=== PATIENT | female | born 1950 | race Caucasian/White ===

== ENCOUNTER → 2020-12-26 | Outpatient (CLI) | payer MEDICARE, OTHER ==
[~2020-12-26] MED LIST: BENADRYL25 MG PO; FLEXERIL 10 MG10 MG PO; MEDROL4 MG PO
== END ==
LOC: KOH-I 12:56
DX: Z01.811 Encounter for preprocedural respiratory examination (principal); R06.02 Shortness of breath
CPT/HCPCS: 71046

== ENCOUNTER 2021-01-08 10:34 | Emergency (ER) | payer MEDICARE, OTHER ==
[~2021-01-08 10:34] MED LIST changes: -BENADRYL25 MG PO; -MEDROL4 MG PO
[2021-01-08 13:23] LABS: HEMOGLOBIN 12.7 gm/dl (12.3-15.3); RED BLOOD COUNT 4.36 M/UL (4.00-5.10); WHITE BLOOD COUNT 10.1 K/UL (4.5-11.0)
[2021-01-08] MEDS ORDERED: MEDROL4 MG PO (14:06)
[2021-01-08] MEDS ORDERED: BENADRYL25 MG PO (14:06)
== END 2021-01-08 14:58 | disposition home or self-care (01) ==
LOC: ER1 10:34
PROVIDERS: Emergency Medicine
DX: T78.40XA Allergy, unspecified, initial encounter (principal); R21 Rash and other nonspecific skin eruption; H57.89 Other specified disorders of eye and adnexa; I10 Essential (primary) hypertension; E11.51 Type 2 diabetes mellitus with diabetic peripheral angiopathy without gangrene; M19.90 Unspecified osteoarthritis, unspecified site; F17.200 Nicotine dependence, unspecified, uncomplicated; Z79.899 Other long term (current) drug therapy
CPT/HCPCS: 80053; 85025; 87040; 96374; 96375; 99283; J1200; J2930; J7030

== ENCOUNTER 2021-01-21 20:18 | Emergency (ER) | payer MEDICARE, OTHER ==
[~2021-01-21 20:18] MED LIST changes: +BENADRYL25 MG PO; +MEDROL4 MG PO
[2021-01-21 21:40] LABS: HEMOGLOBIN 13.3 gm/dl (12.3-15.3); RED BLOOD COUNT 4.37 M/UL (4.00-5.10); WHITE BLOOD COUNT 12.8 K/UL (4.5-11.0)
[2021-01-21 22:03] LABS: BUN/CREATININE RATIO 23 (0-10)
== END 2021-01-22 05:51 | disposition short-term general hospital (02) ==
LOC: ER1 20:18
PROVIDERS: Physician Assistant
DX: I66.13 Occlusion and stenosis of bilateral anterior cerebral arteries (principal); G45.9 Transient cerebral ischemic attack, unspecified; I65.23 Occlusion and stenosis of bilateral carotid arteries; E11.51 Type 2 diabetes mellitus with diabetic peripheral angiopathy without gangrene; F17.210 Nicotine dependence, cigarettes, uncomplicated; I10 Essential (primary) hypertension; Z90.710 Acquired absence of both cervix and uterus; Z88.6 Allergy status to analgesic agent; Z88.2 Allergy status to sulfonamides; Z79.84 Long term (current) use of oral hypoglycemic drugs; Z79.02 Long term (current) use of antithrombotics/antiplatelets
CPT/HCPCS: 70450; 70496; 70498; 71045; 80053; 81001; 82550; 82553; 83874; 84484; 85025; 85652; 86140; 87086; 93005; 99285; Q9967

== ENCOUNTER → 2021-02-23 | Outpatient (CLI) | payer MEDICARE, OTHER | LOC: US 10:45 | DX: I73.9 Peripheral vascular disease, unspecified (principal); I65.23 Occlusion and stenosis of bilateral carotid arteries | CPT/HCPCS: 36415; 93922 ==

== ENCOUNTER → 2021-04-10 | Outpatient (CLI) | payer MEDICARE, OTHER | LOC: KOH-I 10:59 | DX: M54.5 Low back pain (principal) | CPT/HCPCS: 72100 ==

== ENCOUNTER → 2021-04-16 | Outpatient (CLI) | payer MEDICARE, OTHER ==
[2021-04-16 13:44] LABS: HEMOGLOBIN 12.9 gm/dl (12.3-15.3); RED BLOOD COUNT 4.22 M/UL (4.00-5.10); WHITE BLOOD COUNT 10.7 K/UL (4.5-11.0)
== END ==
LOC: LAB 12:57
PROVIDERS: Radiology Neuroradiology
DX: I65.23 Occlusion and stenosis of bilateral carotid arteries (principal); E11.69 Type 2 diabetes mellitus with other specified complication
CPT/HCPCS: 36415; 80048; 83036; 85025; 85610; 85730

== ENCOUNTER → 2021-07-23 | Outpatient (CLI) | payer MEDICARE, OTHER | LOC: CT 10:30 | DX: I70.222 Atherosclerosis of native arteries of extremities with rest pain, left leg (principal); I70.201 Unspecified atherosclerosis of native arteries of extremities, right leg | CPT/HCPCS: 36415; 75635; 82565; Q9967 ==

== ENCOUNTER 2022-03-29 22:03 | Emergency (ER) | payer MEDICARE, OTHER ==
[2022-03-29 23:05] LABS: HEMOGLOBIN 10.1 gm/dl (12.3-15.3); RED BLOOD COUNT 3.53 M/UL (4.00-5.10); WHITE BLOOD COUNT 11.1 K/UL (4.5-11.0)
[2022-03-29 23:35] LABS: BUN/CREATININE RATIO 12 (0-10)
== END 2022-03-30 03:45 | disposition critical access hospital (66) ==
LOC: ER1 22:03
PROVIDERS: Physician Assistant
DX: T82.898A Other specified complication of vascular prosthetic devices, implants and grafts, initial encounter (principal); J18.9 Pneumonia, unspecified organism; E11.9 Type 2 diabetes mellitus without complications; I10 Essential (primary) hypertension; Z88.2 Allergy status to sulfonamides; Z20.822 Contact with and (suspected) exposure to COVID-19
CPT/HCPCS: 0240U; 70496; 70498; 71045; 80053; 81001; 82550; 82553; 84484; 85025; 85610; 85730; 93005; 96374; 99285; J0696; Q9967